=== PATIENT | male | born 1985 | race Caucasian/White ===

== ENCOUNTER 2019-10-05 10:19 | Emergency (ER) | payer OTHER, SELFPAY ==
--- NOTE | ~2019-10-05 | CT_ITS ---
EXAMINATION: CT brain wo con EXAM DATE: 10/05/2019 11:21 INDICATION: Head injury, laceration back of head. TECHNIQUE: Spiral CT of the head was performed without contrast. Axial, coronal and sagittal images were reviewed. The dose-length product (DLP) for this examination was 605.33 mGy-cm. The exposure w as tailored according to patient size, and iterative reconstruction (ASIR) was used as additional dos e reduction technique. There is no prior study for comparison. FINDINGS: There is no acute intraparenchymal hemorrhage. No evidence of intraparenchymal brain mass lesion. No evidence of acute infarction. There is no mass effect or midline shift. The ventricles are normal in size. There are no extra-axial collections. There are no acute calvarial fractures. T he orbits are unremarkable. There is right posterior scalp contusion, laceration. The visualized sin uses and mastoid air cells are well aerated. IMPRESSION: 1. No acute intracranial findings. 2. Right posterior scalp contusion, laceration. Reviewed, dictated and finalized at location A.
--- NOTE | 2019-10-05 10:48 | ED.GENADULT ---
HPI - General Adult General Chief complaint: Wound/Laceration Stated complaint: High on meth, needs stitches. Time Seen by Provider: 10/05/19 10:32 Source: patient and family Mode of arrival: ambulatory Limitations: clinical condition History of Present Illness HPI narrative: Patient is a 34-year-old male who presents to the emergency department for evaluation of head injury. The history is obtained from the patient's mother who is at bedside as the patient is sitting up, awake, alert, but nonconversant with me. Patient's mother states that her son was brought to her house after not seeing him for 2 weeks. She states that he has a history of drug addiction, and she does not see him for many weeks at a time throughout the year. She states that she suspects he has been using some combination of drugs, showed up this morning with police with a head laceration. She states that the patient was talking and conversant this morning, and was able to ambulate into the emergency department and speak with the nurse, but when prompted numerous times, patient is just looking at me, otherwise not providing any verbal responses. Related Data Allergies Allergy/AdvReac Type Severity Reaction Status Date / Time No Known Allergies Allergy Verified 10/05/19 11:17 Review of Systems Review of Systems: ROS unobtainable: Yes unobtainable due to medical condition (Patient is intoxicated) PMFSH Past Medical History Medical History Methamphetamine abuse Social History Social History (Updated 10/05/19 @ 11:00 by Lucrecia Lovelace MD) Smoking status: Current every day smoker Alcohol intake: current Substance use: current Substance use type: heroin, amphetamines and IV drugs Living arrangements: homeless Gender identity (if verbalized by the patient): Male Exam Narrative: Exam Narrative: GENERAL: Awake, alert, conversant HEAD: 3 cm, linear posterior scalp laceration, minimal active bleeding, no galea visible, no cranium visible EYES: 2+ PERRLA and EOMI. ENT: Nares clear, no rhinorrhea or epistaxis. Mucous membranes moist. NECK: Supple. CHEST: No respiratory distress, breathing even and non labored HEART: Regular rate, sinus rhythm ABDOMEN:Non distended, non tender EXTREMITIES: Normal range of motion. No edema. SKIN: Warm, dry, no rash. NEURO:No focal deficits. Alert, not providing any verbal responses Course Vital Signs Vital signs: Vital Signs Temperature 37.2 C 10/05/19 11:04 Pulse Rate 114 H 10/05/19 11:04 Respiratory Rate 18 10/05/19 11:04 Blood Pressure 138/88 10/05/19 11:04 Pulse Oximetry 99 10/05/19 11:04 Temperature 37.2 C 10/05/19 11:04 Pulse Rate 114 H 10/05/19 11:04 Respiratory Rate 18 10/05/19 11:04 Blood Pressure 138/88 10/05/19 11:04 Pulse Oximetry 99 10/05/19 11:04 Procedures Laceration Laceration 1: Date: 10/05/19 Time: 12:32 Site: scalp Size (cm): 3 Description: linear Depth: simple, single layer Local Anesthetic: lidocaine 1% Amount of anesthesia used (mL): 5 Pre-repair: wound explored and irrigated ====== Skin Level ====== Skin layer closed with: viviane (7) ====== Subcutaneous Layer ====== ====== Muscle Layer ====== ====== Tendon Layer ====== Medical Decision Making MDM Narrative Medical decision making narrative: Patient presenting for evaluation of scalp laceration. At the time of assessment, ABCs are intact and vital signs are notable for sinus tachycardia, otherwise vital signs are stable. Initially, patient was not willing to participate in history with me, not answering any questions, but at the time of reassessment repeatedly is able to tell me that he is fine. Patient with a 3 cm superficial scalp laceration which was irrigated, anesthetized, and repaired with viviane. Imaging shows no intracranial hemorrhage
[2019-10-05 11:04] VITALS: BP 138/88; PULSE 114; RESP 18; TEMP 37.2; O2SAT 99
[2019-10-05 11:15] LABS: Basophils Absolute Auto 0.1 K/mm3 (0.0-0.1); Basophils Percent Auto 0.8 % (0.2-1.2); Eosinophils Absolute Auto 0.1 K/mm3 (0-0.3); Eosinophils Percent Auto 0.6 % (0-4.4); Hematocrit 44.1 % (42.0-52.0); Hemoglobin 14.9 g/dL (14.0-18.0); Immature Granulocyte Absolute 0.03 K/mm3 (0.00-0.031); Immature Granulocyte Percent A 0.3 % (0-0.5); Lymphocytes Absolute Auto 2.45 K/mm3 (0.9-3.2); Lymphocytes Percent Auto 20.5 % (18.3-44.2); Mean Corpuscular HGB Conc 33.8 g/dl (32-36); Mean Corpuscular Hemoglobin 30.8 pg (26-34); Mean Corpuscular Volume 91.3 fl (80-100); Mean Platelet Volume 10.1 fl (7.4-10.4); Monocytes Percent Auto 8.4 % (2.6-8.5); Neutrophils Absolute Auto 8.3 K/mm3 (1.3-6.7); Neutrophils Percent Auto 69.4 % (45.5-73.1); Platelet Count Result 306 k/mm3 (150-375); Red Blood Count 4.83 M/mm3 (4.6-6.20); Red Cell Distribution Width 12.3 % (11.5-14.5)
--- NOTE | 2019-10-05 11:17 | PC.NURSE ---
REPORT TO VERA MARIN V AT THIS TIME, PT IN CT, SHE HAS ASSUMED PT CARE.
[2019-10-05] MEDS: TETANUS,DIPHTHERIA,AC PERTUSSIS ADULT (0.5 ML) BOOSTRIX IM (11:27)
[2019-10-05 11:28] LABS: Blood Urea Nitrogen 15 mg/dL (9-20); Calcium 9.9 mg/dL (8.4-10.2); Carbon Dioxide 29 mmol/L (22-30); Chloride 100 mmol/L (98-107); Estimated CRCL calculation 111 ml/min; Estimated Glomerular Filt Rate > 60; Glucose 112 mg/dL (75-110); Potassium 4.2 mmol/L (3.4-5.0); Sodium 139 mmol/L (137-145)
[2019-10-05 11:33] LABS: Ethanol < 10 mg/dL (<10)
[2019-10-05 12:55] LABS: Barbiturate Screen Urine Negative (Negative); Benzodiazepines Screen Urine Negative (Negative)
[2019-10-05 13:03] LABS: Amphetamine Screen Urine Positive (Negative); Cannabinoid Screen Urine Positive (Negative); Cocaine Screen Urine Negative (Negative); Methadone Screen Urine Negative (Negative); Opiate Screen Urine Negative (Negative); Phencyclidine Screen Urine Negative (Negative)
--- NOTE | 2019-10-05 13:04 | PC.NURSE ---
Lab called and stated order was not in for urine; order printed and tubed to Lab; calledLucrecia in Lab made aware
--- NOTE | 2019-10-05 13:09 | PC.NURSE ---
Urine specimen collected by Yuniel Brewer Tech. Used drug tox label, did not bhupendra urine as collected so mobilab label did not print. Mounika Vicente scanned pt., scanned UA label and sent label to lab.
[2019-10-05 13:15] LABS: Add Urine Microscopic? YES; Appearance Urine Clear (Clear); Bacteria Urine Trace /hpf; Bilirubin Urine Negative (Negative); Blood Urine Negative (Negative); Color Urine Yellow (Yellow); Glucose Urine UA Negative (Negative); Ketones Urine Negative (Negative); Leukocyte Esterase Ur Negative LEU/UL (Negative); Mucus Urine Rare /lpf; Nitrate Urine Negative (Negative); Protein Urine 1+ mg/dL (Negative); RBC Urine 0-2 /hpf (0-2); Urobilinogen Urine Negative mg/dL (<2.0)
== END 2019-10-05 13:47 | disposition home or self-care (01) ==
PROVIDERS: Emergency Provider Emergency Medicine
DX: S01.01XA Laceration without foreign body of scalp, initial encounter (principal); X58.XXXA Exposure to other specified factors, initial encounter; Z23 Encounter for immunization
CPT/HCPCS: 12002; 36415; 70450; 80048; 80307; 81001; 85025; 90471; 90715; 99284

== ENCOUNTER 2021-08-15 22:53 | Emergency (ER) | payer OTHER, SELFPAY ==
--- NOTE | ~2021-08-15 | XR_ITS ---
XR chest 1V portable 08/16/2021 01:59 Indication: Cough. Covid. Procedure: AP portable chest Comparison: No prior studies for comparison. Findings: There is diffuse right-sided airspace disease, compatible with pneumonia. No pleural effusi on. Heart size normal. No pneumothorax. No acute osseous abnormality. Impression: 1: Diffuse right-sided airspace disease, compatible with pneumonia. Reviewed, dictated and finalized at location A. Impression: 1: Diffuse right-sided airspace disease, compatible with pneumonia.
[2021-08-15 23:02] VITALS: BP 128/79; PULSE 97; RESP 16; TEMP 36.7; O2SAT 98
[2021-08-16] MEDS: ACETAMINOPHEN 500 MG TABLET 1000 MG PO (02:27)
--- NOTE | 2021-08-16 02:28 | ED.URI ---
HPI - URI/Sore Throat General Chief Complaint: Upper Respiratory Infection Stated Complaint: cough Time Seen by Provider: 08/16/21 01:49 Source: patient Mode of arrival: ambulatory Limitations: no limitations History of Present Illness HPI Narrative: This is a 36-year-old male that presents to the emergency department for cold symptoms present x2 days. Reports fever, cough, congestion, sore throat, and myalgias. Denies shortness of breath. Related Data Allergies Allergy/AdvReac Type Severity Reaction Status Date / Time No Known Allergies Allergy Verified 08/15/21 23:06 Review of Systems Review of Systems: CONSTITUTIONAL: Reports fever ENT: Reports congestion, sore throat CARDIOVASCULAR: Denies chest pain RESPIRATORY: Reports cough. Denies dyspnea. All systems reviewed & are unremarkable except as noted in HPI and below PMFSH Past Medical History Medical History (Updated 08/16/21 @ 02:47 by Rabia Karimi PA-C) Methamphetamine abuse Social History Social History (Updated 10/05/19 @ 11:00 by Lucrecia Lovelace MD) Smoking status: Current every day smoker Alcohol intake: current Substance use: current Substance use type: heroin, amphetamines and IV drugs Gender identity (if verbalized by the patient): Male Exam Narrative: GENERAL: Well-appearing, well-nourished, and in no acute distress. HEAD: Normocephalic, atraumatic. EYES: EOMI. ENT: Nares clear, no rhinorrhea or epistaxis. Mucous membranes moist. Oropharynx without tonsillar hypertrophy exudate or other lesions. Bilateral TMs pearly gaitan non-bulging. Bilateral maxillary sinus tenderness NECK: Supple. No adenopathy or masses. CHEST: Clear to auscultation. No respiratory distress. No wheezes rales or rhonchi HEART: Regular rate and rhythm. No murmur heard. Normal peripheral pulses. EXTREMITIES: Normal range of motion. No edema. SKIN: Warm, dry, no rash. NEURO: No focal deficits. Alert and oriented x3. PSYCH: Normal mood and affect Course Vital Signs Vital signs: Vital Signs Temperature 98.1 F 08/15/21 23:02 Pulse Rate 97 08/15/21 23:02 Respiratory Rate 16 08/15/21 23:02 Blood Pressure 128/79 08/15/21 23:02 Pulse Oximetry 98 06/01/22 23:02 Oxygen Delivery Room Air 08/15/21 23:02 Temperature 98.1 F 08/15/21 23:02 Pulse Rate 97 08/15/21 23:02 Respiratory Rate 16 08/15/21 23:02 Blood Pressure 128/79 08/15/21 23:02 Pulse Oximetry 98 08/15/21 23:02 Oxygen Delivery Room Air 08/15/21 23:02 MDM - URI/Sore Throat MDM Narrative Medical decision making narrative: Patient presents to the emergency department for cold symptoms present over the last couple of days. Patient is afebrile and nontoxic-appearing. Lungs are clear on exam. Oxygen saturation is normal on room air. Influenza and COVID screens are negative. Chest x-ray shows consolidations in the right lung. Patient will be started on oral antibiotics and was instructed to follow-up with primary doctor. He was given warnings to return to the ER Lab Data Attestation: I reviewed the patient's lab results. Labs: Lab Results 08/16/21 Range/Units 02:03 Influenza A (RT-PCR) Negative (Negative) Influenza B (RT-PCR) Negative (Negative) SARS-CoV-2 RNA (RT-PCR) Negative Imaging Data My impression: Chest x-ray: Consolidations noted in the right mid to lower lung zones Critical Care Time Critical Care Time Critical Care Time: No Discharge Plan Discharge Clinical Impression: Community acquired pneumonia Patient Disposition: Home, Self-Care Condition: Stable Instructions: Antibiotic Form, Community Acquired Pneumonia (ED) Additional Instructions: Return to the emergency department for worsening symptoms, or any other concerns Remain well-hydrated, get plenty of rest. Take Tylenol or Motrin [id number] for pain as needed. Flonase for nasal congestion. Zyrtec for runny nose. Lozenges or Chloraseptic spra
[2021-08-16 02:44] LABS: Influenza A QL RT-PCR Negative (Negative); Influenza B QL RT-PCR Negative (Negative); SARS-CoV-2 RNA PCR Negative
[2021-08-16] MEDS: AZITHROMYCIN 250 MG TABLET 500 MG PO (03:13)
[2021-08-16] MEDS: AMOXICILLIN/CLAVULANATE K 875-125 MG TAB 1 TABLET PO (03:13)
[2021-08-16 03:17] VITALS: O2SAT 99
[2021-08-16 03:18] VITALS: BP 131/90; PULSE 88; RESP 18; O2SAT 99
== END 2021-08-16 03:21 | disposition home or self-care (01) ==
PROVIDERS: Physician Assistant; Emergency Provider Emergency Medicine
DX: J18.9 Pneumonia, unspecified organism (principal); Z20.822 Contact with and (suspected) exposure to COVID-19; F17.200 Nicotine dependence, unspecified, uncomplicated
CPT/HCPCS: 71045; 87502; 99283; A9270; C9803; U0003; U0005